=== PATIENT | male | born 1995 | race Caucasian/White ===

== ENCOUNTER 2018-01-19 11:22 | Emergency (ER) | payer SELFPAY ==
[~2018-01-19] VITALS: Ht 177.8 cm; Wt 86.2 kg
== END 2018-01-19 11:30 | disposition home or self-care (01) ==
LOC: ED 11:22
DX: R05 Cough (principal); R09.89 Other specified symptoms and signs involving the circulatory and respiratory systems

== ENCOUNTER 2018-10-02 10:15 | Emergency (ER) | payer SELFPAY ==
[~2018-10-02] VITALS: Ht 177.8 cm; Wt 86.2 kg
[2018-10-02] MEDS ORDERED: ONDANSETRON ODT8 MG PO (12:42)
== END 2018-10-02 12:51 | disposition home or self-care (01) ==
LOC: ED 10:15
DX: K52.9 Noninfective gastroenteritis and colitis, unspecified (principal); J04.0 Acute laryngitis
CPT/HCPCS: 99283